=== PATIENT | male | born 1935 | race Caucasian/White ===

== ENCOUNTER 2017-04-17 17:54 | Inpatient (IN) | payer OTHER ==
[~2017-04-17] VITALS: Ht 175.2 cm; Wt 77.1 kg
--- NOTE | ~2017-04-17 | PR ---
[place], [place] PROGRESS NOTE NAME: VANDANA TOWNSEND UNIT #: [id number] ROOM: 316 DOCTOR: Manas ESTES,ELANA BIRTHDATE: [birth year] DOS: 04/22/2017 SUBJECTIVE: The patient seen and spoke with the staff. Per staff, the patient is doing well. No behavioral problems or issues. Pleasant and cooperative. The patient was pleasant and cooperative. He was in the day area. He reports doing well, denied any problems or concerns. He reports good sleep and appetite. MENTAL STATUS EXAMINATION: The patient was pleasant and cooperative. Described his mood as "okay." Affect, mood congruent. Thought process is with confabulation. He denied auditory or visual hallucination. No delusion or paranoia noted. He denied suicidal ideation, intent or plan. He also denied homicidal ideation, intent or plan. ASSESSMENT: 1. Alzheimer's dementia with behavioral disturbances. 2. Brief psychotic disorder. PLAN: 1. Continue current medication and care. 2. Continue redirection. 3. Cerrato milieu. ELANA ESTES MD CM:NAYELI Manas ESTES 04/23/17 0043 interface
--- NOTE | ~2017-04-17 | PR ---
[place], [place] PROGRESS NOTE NAME: VANDANA TOWNSEND UNIT #: [id number] ROOM: 316 DOCTOR: Manas ESTES,ELANA BIRTHDATE: [birth year] DOS: 04/21/2017 SUBJECTIVE: The patient seen and spoke with the staff. Per staff, the patient is doing well. No behavioral problems or issues. Medication compliant. easily reduced redirectable. No side effects from the medication. The patient was pleasant, cooperative. He was on his bed taking a deep nap. When I called his name, he opened his eyes and then fell back to sleep again. When I called him ____ he said that he is doing fine, but then fell back to sleep again. MENTAL STATUS EXAMINATION: The patient was pleasant, cooperative. He was sleepy. He was not in any distress, described his mood as "fine." He is in sleep, not able to do the full mental status examination. ASSESSMENT: 1. Dementia with behavioral disturbances. 2. Psychotic disorder, not otherwise specified. PLAN: 1. Continue current medication and care. 2. Continue redirection. 3. Cerrato milieu. ELANA ESTES MD CM:NAYELI [phone] Manas ESTES 04/21/171938 interface
--- NOTE | ~2017-04-17 | PR ---
[place], [place] PROGRESS NOTE NAME: [facility]END [id number] UNIT #: [id number] ROOM: 316 DOCTOR: Manas ESTES,ELANA BIRTHDATE: [birth year] DOS: 04/23/2017 PSYCHIATRIC PROGRESS NOTE SUBJECTIVE: The patient seen and spoke with the staff. Per staff, the patient is doing well. No behavioral problems or issues. Pleasantly demented. Medication compliant. No side effects from the medication. The patient was pleasant and cooperative. He reports doing well. Reports good sleep and appetite, did not express any problems or concerns. MENTAL STATUS EXAMINATION: The patient was pleasant and cooperative, described his mood as "okay." Affect, mood congruent. Thought processes with confabulation. He denied auditory or visual hallucination. No delusions or paranoia noted. He denied suicidal ideation, intent or plan. He also denied homicidal ideation, intent or plan. ASSESSMENT: 1. Dementia with behavioral disturbances. 2. Brief psychotic disorder. PLAN: 1. Continue current medication and care. 2. Continue redirection. 3. Cerrato milieu. ELANA ESTES MD CM:NAYELI 57 57 Manas ESTES 04/23/172356 interface
--- NOTE | ~2017-04-17 | WRIGHTHP ---
[place], [place] PATIENT HISTORY AND PHYSICAL EXAM NAME: VANDANA TOWNSEND [facility] #: [id number] UNIT #: [id number] ROOM: 316 DOCTOR: Manas ESTES,ELANA BIRTHDATE: [birth year] DOS: 04/19/2017 PSYCHIATRIC HISTORY AND PHYSICAL REASON FOR HOSPITALIZATION: Increased agitation, threatening behavior and mental status changes in the chcf. HISTORY OF PRESENT ILLNESS: The patient was seen, chart reviewed and I also spoke with the nursing staff. The patient is an 81-year-old male who was brought into the ER because of agitated and threatening behavior and also change of mental status. The patient is from [facility]. Reportedly, the patient was urinating and defecating in public. The patient was cleared medically into the ER and then got admitted to the psychiatric unit for further care and stabilization. The patient was noted to have urinary tract infection and he was also started on antibiotic. The patient was pleasant, cooperative, but a poor historian due to dementia. When I asked him what brought him here, he mentioned that he thought that he had something wrong with him and that is why he came here, but not able to say what does he mean by here. When I prompted him that he was not feeling good, he was not feeling good, he was not in any distress. PAST MEDICAL HISTORY: Significant for BPH, congestive heart failure, diabetes, diabetic neuropathy, fracture of the coccyx, fracture of the lumbar vertebrae, GERD, hypertension, polyosteoarthritis and polymyalgia rheumatica. PAST PSYCHIATRIC HISTORY: The patient with history of dementia. SUBSTANCE ABUSE HISTORY: No drugs or alcohol. SOCIAL HISTORY: The patient was born in [place]. He mentioned that his parents were living there, but he was raised in [facility]. He was never . He does not have any kids. 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 MENTAL STATUS EXAMINATION: The patient was pleasant and cooperative. He was alert, but not oriented to day, date, month, or year. His speech was low tone. Described his mood as "okay." Affect was somewhat flat. Thought processes with confabulation. He denied auditory or visual hallucination. No delusion or paranoia noted. He denied any suicidal ideation, intent or plan. Insight and judgment was impaired. ASSESSMENT: 1. Alzheimer dementia with behavioral disturbances. 2. Major neurocognitive disorder with behavioral disturbances. 3. Delirium secondary to urinary tract infection. PLAN: [place], [place] PATIENT HISTORY AND PHYSICAL EXAM NAME: VANDANA TOWNSEND UNIT #: [id number] ROOM: [facility] DOCTOR: Manas ESTES,ELANA BIRTHDATE: [birth year] 1. I will continue his Cymbalta 60 mg in the morning. 2. I will reduce his Depakote to Depakote 250 mg b.i.d. 3. I will continue his Namenda 10 mg twice a day. 4. Continue redirection. 5. Encourage activity and hernandez milieu. ELANA ESTES MD CM:HISPHYS:PATIENT HISTORY AND PHYSICAL EXAMINATION 20 44 Manas ESTES 04/19/17 2344 interface
--- NOTE | ~2017-04-17 | PR ---
[place], [place] PROGRESS NOTE NAME[id number] UN[facility] #: [id number] ROOM: 316 DOCTOR: Manas ESTES,ELANA BIRTHDATE: [birth year] DOS: 04/20/2017 PSYCHIATRIC PROGRESS NOTE SUBJECTIVE: The patient seen and spoke with the staff. Per staff, the patient is doing well. No behavioral problems or issues. Medication compliant. The patient was in the Aria chair in the nursing area. Reports doing okay. He seems to be a little bit sedated. Denied any problems or issues. MENTAL STATUS EXAMINATION: The patient was pleasant and cooperative, described his mood as "okay." Affect flat. Thought processes with confabulation. Denied auditory or visual hallucination. No delusion or paranoia noted. Denied any suicidal ideation, intent or plan. He also denied any homicidal ideation, intent or plan. Insight and judgment impaired. ASSESSMENT: 1. Alzheimer's dementia with behavioral disturbances. 2. Delirium secondary to urinary tract infection. PLAN: 1. Continue current medication and care. 2. Continue redirection. 3. Cerrato milieu. ELANA ESTES MD CM:NAYELI [phone] Manas ESTES 04/20/17 1533 interface
--- NOTE | ~2017-04-17 | DS ---
[place], [place] DISCHARGE SUMMARY NAME: VANDANA TOWNSEND UNIT #: [id number] ROOM: 316 DOCTOR: Manas ESTES,ELANA BIRTHDATE: [birth year] DOS: 04/23/2017 ADDENDUM Please refer to the history of present illness, past psychiatric history, past medical history, social history, substance abuse history, mental status examination, admission diagnosis from the psychiatric H and P. HOSPITAL COURSE: The patient got admitted for stabilization. He was started on medication, which he tolerated well with significant improvement of his mood and symptoms. During the next couple of days, the patient improved significantly. The treatment team felt that the patient got maximum benefit out of this acute hospitalization and can be discharged back to the half-way on 04/23/2017. MENTAL STATUS EXAMINATION AT DISCHARGE: The patient was pleasant, cooperative. He was alert, but not oriented to date, month and year. Speech was low tone. Described his mood as "okay." Affect, mood congruent. Thought processes with confabulation. He denied auditory or visual hallucination. No delusion or paranoia noted. He denied suicidal ideation, intent or plan. He also denied homicidal ideation, intent or plan. ASSESSMENT: Dementia with behavioral disturbances. PLAN: 1. Continue current medication and care. 2. Continue redirection. 3. The patient needs psychiatric followup appointment in the facility that he is going. ELANA ESTES MD CM:ADRIAN [phone] Manas ESTES 04/26/17 0612 interface
[2017-04-17] MEDS ORDERED: GOOD SENSE ASPI81 M1 PO (17:59)
[2017-04-17] MEDS ORDERED: ATIVAN0.5 MG PO ×2 (17:59→18:34)
[2017-04-17] MEDS ORDERED: CYMBALTA60 MG PO (18:00)
[2017-04-17] MEDS ORDERED: ERGOCAL2500 UNIT PO (18:02)
[2017-04-17] MEDS ORDERED: EXELON13.3 MG/21 TD (18:03)
[2017-04-17] MEDS ORDERED: Ferrex 150150 MG PO (18:04)
[2017-04-17] MEDS ORDERED: NEURONTIN300 MG PO (18:05)
[2017-04-17] MEDS ORDERED: LISINOPRIL20 MG PO (18:06)
[2017-04-17] MEDS ORDERED: NAMENDA-14 PO (18:08)
[2017-04-17] MEDS ORDERED: NAMENDA-21 PO (18:09)
[2017-04-17] MEDS ORDERED: NORVASC5 MG PO (18:10)
[2017-04-17] MEDS ORDERED: OMEPRAZOLE40 MG PO (18:10)
[2017-04-17] MEDS ORDERED: EFFER-K20 MEQ PO (18:12)
[2017-04-17] MEDS ORDERED: TOPROL XL200 MG PO (18:14)
[2017-04-17] MEDS ORDERED: METFORMIN500 MG PO (18:14)
[2017-04-17] MEDS ORDERED: PREDNISONE (18:27)
[2017-04-17] MEDS ORDERED: PREDNISONE10 MG PO (18:28)
[2017-04-17] MEDS ORDERED: HUMALOG KW200 UNIT/1 SQ (18:32)
[2017-04-17] MEDS ORDERED: ACCUNEB 0.1.25 MG/1 INH (18:33)
[2017-04-17] MEDS ORDERED: GUAIASORB DM L118 ML PO (18:35)
--- NOTE | 2017-04-18 09:10 | NUR ---
ADMISSION ORDERS RECEIVED FROM DR. DIOP, HOME MEDICATIONS REVIEWED WITH DR. DIOP, NEW ORDERS RECIEVED AND VERIFIED. WITNESSED BY 2ND RN MALICK.
--- NOTE | 2017-04-18 09:15 | NUR ---
VERBAL CONSENT FOR ADMISSION RECIEVED VIA TELEPHONE FROM PT'S POA/NIECE KEL COLE - WITNESSED BY 2ND RN MALICK, [facility] POA PAPERWORK AND LIVING WILL ON PT'S PAPER CHART, PT IS A FULL CODE. POA STATES SHE WILL CALL BACK TO GO OVER THE REST OF THE CONSENTS.
--- NOTE | 2017-04-18 09:20 | NUR ---
CALL PLACED TO [facility], SPOKE TO TETE, MADE AWARE PT IS ACCEPTED FOR ADMISSION, REQUESTED NURSE CALL WITH REPORT AND TIME OF DEPARTURE.
--- NOTE | 2017-04-18 10:10 | NUR ---
RECIEVED CALL FROM TETE AT [facility], PT HAS JUST LEFT THEIR FACILITY, NURSE TO NURSE REPORT RECIEVED, TETE STATES PT HAS HAD ALL OF HIS MORNING MEDS THIS AM.
--- NOTE | 2017-04-18 10:25 | NUR ---
RECIEVED CALL FROM IRENE COLE - MEDICATION CONSENTS REVIEWED, KEL STATES SHE IS A PHARMACIST AND UNDERSTANDS MEDICATIONS, STATES SHE FEELS PT'S BEHAVIORS HAVE DEVELOPED AFTER THE ADDITION OF THE EXELON PATCH. KEL STATES "BEFORE THAT HE WOULD GET UP OUT OF THE WHEELCHAIR, BUT HE NEVER DID THE THINGS HE IS DOING NOW. ONCE THEY STARTED THE EXELON PATCH HE HAS STARTED ACTING OUT AND I TRULY BELIEVE THAT'S THE CAUSE. I REALLY WOULD LIKE IT DISCONTINUED." THIS NURSE ASSURED IRENE HER CONCERNS WOULD BE DISCUSSED WITH DR. DIOP. VISITATION AND RULES OF THE UNIT REVIEWED WITH IRENE. IRENE STATES SHE WILL COME DOWN AND BRING PT CLOTHING AND SIGN REMAINING CONSENTS AT THAT TIME.
--- NOTE | 2017-04-18 10:30 | NUR ---
DISCUSSED EXELON ORDER WITH DR. DIOP AND CONCERNS OF THE POA. DR. DIOP STATES TO DISCONTINUE EXELON.
[2017-04-18] MEDS ORDERED: NEURONTIN300 MG PO (10:40)
--- NOTE | 2017-04-18 11:16 | NUR ---
VANDANA TOWNSEND a 81 year old M admitted via ambulance wheelchair transport from [facility], direct admission per Dr. Tuttle as a voluntary by healthcare POA admission. Arrived on unit at 1116. ALLERGIES: PCN, SULFA. Vital signs are: 97.6-88-20 150/82. 99% ROOM AIR The following forms were discussed via telephone with Julia Armenta, pt's niece and healthcare power of mobile home set up person, consents obtained, witnessed by 2nd RN Hermelinda Guerrero: Authorization For The Release of Medical Information, Clothing List, Consent to Voluntary Admission and Hospitalization, Consent and Release Forms/Receipt of Rights, Acknowledgement of Advance Directive Information, Behavioral Health Consent Form, and Informed Consent of Medications. Admitted under the services of Dr. JADON BUSHCHRISTOFER. A search was conducted and hazardous articles were removed. Client was oriented to the unit. DUTCH PIERRE
[2017-04-18 11:50] VITALS: BP 150/82
--- NOTE | 2017-04-18 11:56 | NUR ---
CALL PLACED TO [phone] FOR HOSPITALIST CELL NUMBER ONE, SPOKE TO DR. PIKE, MADE AWARE MEDICAL HISTORY AND MED REC IS COMPLETE FOR REVIEW. DR. PIKE STATES TO PLACE CONSULT UNDER DR. STEEL.
--- NOTE | 2017-04-18 12:41 | NUR ---
SPEECH PATHOLOGY Bedside swallow evaluation completed as per orders. Patient is a recent admission to [facility] and limited case history was available at current time. Patient's nurse reported a hx significant for dysphagia. Patient is dx with brief psychotic disorder. Patient is ordered a regular diet and thin liquid. Upon assessment patient was alert and cooperative, though very quiet. Respiratory skills were WNL. Lingual/labial and buccal skills were WNL. Patient presented with natural teeth though many were missing. He was assessed with regular solid, soft solid and thin liquid consistencies. Patient displayed extended mastication time, mild residue and cough with regular solid. He displayed no overt difficulty with soft food or thin liquid. Recommend patient receive a soft diet and thin liquid. Follow up therapy is not warranted at this time. Patient's nurse was educated on results/gagandeep. and verbalized understanding. Refer to report in [facility] for further info. Thank you for this referral. CLAU CURRAN MSCCC-PERSONNEL SCHEDULER
--- NOTE | 2017-04-18 14:34 | NUR ---
PHYSICAL THERAPY Patient with Doctor at this time. Serene Camacho,PT
--- NOTE | 2017-04-18 14:38 | NUR ---
SWS forwarded paperwork to Janelle medina [facility] so that YARY Temple can update the "change in condition" form.
[2017-04-18 15:20] LABS: BASO % 0.2 % (0.0-1.0); EOS # 0.2 10*3/uL (0.0-0.4); EOS % 1.4 % (1.0-4.0); HEMATOCRIT 37.2 % (42.0-52.0); HEMOGLOBIN 12.2 g/dl (14.0-18.0); LYMPH # 1.1 10*3/uL (1.3-4.4); LYMPH % 6.5 % (27.0-41.0); MEAN CELL VOLUME 90.3 fl (80.0-94.0); MEAN CORPUSCULAR HGB 29.6 pg (27.0-31.0); MEAN CORPUSCULAR HGB CONC 32.8 g/dl (33.0-37.0); MEAN PLATELET VOLUME 9.5 fl (9.6-12.3); MONO # 0.5 10*3/uL (0.1-1.0); MONO % 2.7 % (3.0-9.0); NEUT # 14.8 10*3/uL (2.3-7.9); NEUT % 88.1 % (47.0-73.0); PLATELET COUNT AUTOMATED 258 10*3/uL (130-400); RED BLOOD COUNT 4.12 10*6/uL (4.50-5.90); RED CELL DISTRI WIDTH 17.8 % (0-14.5); WHITE BLOOD COUNT 16.8 10*3/uL (4.8-10.8)
[2017-04-18 15:49] LABS: ALBUMIN 3.1 gm/dl (3.1-4.5); ALKALINE PHOSPHATASE 72 U/L (45-117); BUN 23 mg/dl (7-24); CHLORIDE 104 mmol/L (98-107); POTASSIUM 4.3 mmol/L (3.5-5.1); SGOT/AST 6 IU/L (3-35); SGPT/ALT 10 U/L (12-78); SODIUM 139 mmol/L (136-145); TOTAL PROTEIN 6.8 gm/dL (6.4-8.2)
[2017-04-18 16:19] LABS: VITAMIN D, 25-HYDROXY 57.6 ng/mL (30-100)
[2017-04-18 20:00] VITALS: BP 139/78
--- NOTE | 2017-04-19 05:52 | NUR ---
24 HR chart check completed.
--- NOTE | 2017-04-19 05:58 | NUR ---
PT ALERT TO PERSON ONLY, ABLE TO MAKE SOME NEEDS KNOWN. REQUIRES FREQUENT REDIRECTION TO REMAIN SEATED IN CHAIR, FREQUENTLY REMOVING BODY ALARM AND ATTEMPTING TO STAND AND AMBULATE WITH OUT ASSISTANCE. PT AMBULATED 15 FT WITH ASSISTANCE OF STAFF. HYGIENE CARE PROVIDED AND PT PLACED IN BED. RESPONDING TO BED ALARM SOUNDING PT FOUND TO BE SITTING ON SIDE OF BED, WHEN ASKED WHAT WAS GOING ON PT REPLIED "WHY DONT YOU TURN THE LIGHT ON AND COME LOOK AT THIS". PT WAS FOUND TO HAVE WET THREW NEW BRIEF, PJ BOTTOMS AND BED LINENS. PT COOPERATIVE WITH HYGIENE CARE AND RETURNED TO BED WITH OUT DIFFICULTY. PT SLEPT THOUGHOUT NIGHT WITH OUT INTURRUPTION, RECEPTIVE TO REPOSITIONING FOR PRESSURE RELIEF. CONTINUE POC
--- NOTE | 2017-04-19 07:47 | NUR ---
04/18/17 Afternoon Craft; Dealing with stress Patient did not attend group. Patient was asleep in his room
[2017-04-19 07:51] VITALS: BP 151/77
[2017-04-19 08:05] LABS: CHOLESTEROL 71 mg/dL (<200); HDL CHOLESTEROL 31 mg/dl (40-60); LDL CHOLESTEROL 19 mg/dL (9-159); TRIGLYCERIDES 107 mg/dl (<150); VLDL CHOLESTEROL 21 mg/dL (6-40)
--- NOTE | 2017-04-19 08:48 | NUR ---
IRENE PRICE, CALLED THIS MORNING, UPDATE GIVEN BY THIS RN. ALL QUESTIONS ANWSERED.
--- NOTE | 2017-04-19 11:02 | NUR ---
Positive Traits Patient was in attendence for group but was asleep in his chair
--- NOTE | 2017-04-19 11:04 | NUR ---
VANDANA IS PLEASANTLY CONFUSED PER USUAL. CALM AND COOPERATIVE WITH STAFF. LIMITED INTERACTIONS WITH PEERS. NAPS INTERMITTENTLY THROUGHOUT THE SHIFT. MEDICATION COMPLIANT WITHOUT DIFFICULTY. MOOD IS STABLE WITH FLAT AFFECT THIS MORNING. NO SENSORY DISTURBANCES ARE NOTED. NO AGGRESSIVE/COMBATIVE BEHAVIORS. INCONTINENT OF URINE IN BRIEF. INCONTINENCE CARE PROVIDED NEEDED. REFUSED BREAKFAST THIS MORNING. SEE [facility] FLOW SHEET FOR SPECIFIC MONITORING.
--- NOTE | 2017-04-19 11:15 | NUR ---
1300 DEPAKOTE HELD D/T INCREASED DROWSINESS THIS LATE MORNING/EARLY AFTERNOON.
[2017-04-19 11:50] LABS: BILIRUBIN NEGATIVE (NEGATIVE); BLOOD 1+ (NEGATIVE); CLARITY SL CLOUDY (CLEAR); COLOR YELLOW (YELLOW); GLUCOSE NEGATIVE (NEGATIVE); KETONE NEGATIVE (NEGATIVE); LEUKO ESTERASE 3+ (NEGATIVE); NITRITE NEGATIVE (NEGATIVE); PH 5.5 (5.0-9.0); SPECIFIC GRAVITY <= 1.005 (1.005-1.030); UROBILINOGEN 0.2 E.U./dl (0.2-1.0)
[2017-04-19 11:55] LABS: BACTERIA 2+; WBC 51-100 wbc/hpf (0-5)
[2017-04-19 11:56] LABS: EPITHELIAL CELLS 0-2
--- NOTE | 2017-04-19 13:07 | NUR ---
PHYSICAL THERAPY PAtient evaluated on 3, full evaluation to follow. continue with PT as per plan of care with fall and alarm precautions. Return to prior living arrangements with PT PRN. PAtient is moderate complexity via chart review, tests and evalaution: [id number]. Thank you for this referral. Serene Camacho,PT
--- NOTE | 2017-04-19 15:21 | NUR ---
Reminiscing Patient did not attend group, patient was asleep in his room
--- NOTE | 2017-04-19 16:39 | NUR ---
BLADDER SCAN COMPLETED WITH 104CC IN BLADDER. DEBORAH ADAN CNP MADE AWARE.
--- NOTE | 2017-04-19 18:08 | NUR ---
PATIENT IS CALM AND COOPERATIVE. HARD OF HEARING NOTED. SMILING WHEN INTERACTING WITH STAFF APPROPRIATELY. ABLE TO ANWSER SIMPLE QUESTIONS APPROPRIATELY. NAPS THROUGHOUT THE DAY. MULTIPLE UPDATES GIVEN TO MULTIPLE FAMILY MEMBERS THROUGHOUT THE DAY INCLUDING ALBERT BONILLA. SITTING IN DAY ROOM AT THIS TIME.
[2017-04-19 20:00] VITALS: BP 142/86
--- NOTE | 2017-04-19 23:51 | NUR ---
PT FREQUENTLY STANDING AND CLIMBING OUT OF BED. AMBULATED HALLS WITH STAFF ASSISTANCE OF 2 STAFF FULL LEGNTH OF HALLWAY BEFORE EXPRESSING FATIGUE. PT CONTINUING TO REMOVE BODY ALARM . PLACED IN ERICK CHAIR ACROSS FROM NURSES STATION FOR CLOSER OBSERVATION IN RECLINED POSITION.
--- NOTE | 2017-04-20 04:22 | NUR ---
24 HR chart check completed.
--- NOTE | 2017-04-20 06:32 | NUR ---
PT DIFFICULT TO ARROUSE THIS AM. SLEPT NIGHT IN ERICK CHAIR RECLINED ACROSS FROM NURSES STATION DUE TO RESTLESSNESS FREQUENTLY AWAKENING CONFUSED TO PLACE AND TIME. UNABLR TO REOIRIENT, EASILY REDIRECTED BUT SHORTLY RETURNING TO RESTLESS BEHAVIOR AND SITTING ON EDGE OF BED. PT MEDICATION COMPLIANT, OVBIOUS SHORT TERM AND MCFP MEMORY GAPS. CONTINUE 1-1 AND DISTRACTION, CONTINUE TO AMBULATE PT WITH ASSISTANCE. PT CONTINUES ON HIGH FALL PERCAUTIONS, YELLOW SOCKS AND SINAGE, BED AND BODY ALARM IN PLACE AND FUNCTIONING. Q 15 MIN CHECKS OF ALARMS DUE TO PT FREQUENTLY REMOVING BODY ALARM. 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 CONTINUE TO ENGAGE IN THERAPY, CONTINUE TO MONITOR CLOSELY DUE TO HIGH FALL RISK, CONTINUE TO REORIENT TO PLACE AND TIME. FLUIDS ENCOURAGED DUE TO UTI. BGM ACHS CHECKS DISCONTINUED DUE TO LACK OF SLIDING SCALE AND LACK OF ELEVATED GLUCOSE WITH ADMINISTRATION OF METFORMIN PO. PT STARTRED ON FLOMAX THIS EVENING AND CONTINUES TO EXHIBIT POOR URINARY STREAM AT THIS TIME. PT SLEPT 8 HOURS WITH FEW RESTLESS EPISODES. TIME.
[2017-04-20 07:42] LABS: BASO % 0.3 % (0.0-1.0); EOS # 0.3 10*3/uL (0.0-0.4); HEMATOCRIT 35.8 % (42.0-52.0); HEMOGLOBIN 11.8 g/dl (14.0-18.0); LYMPH # 2.3 10*3/uL (1.3-4.4); MEAN CELL VOLUME 89.1 fl (80.0-94.0); MEAN CORPUSCULAR HGB 29.4 pg (27.0-31.0); MEAN PLATELET VOLUME 10.1 fl (9.6-12.3); MONO # 0.5 10*3/uL (0.1-1.0); MONO % 4.4 % (3.0-9.0); NEUT # 7.6 10*3/uL (2.3-7.9); NEUT % 69.8 % (47.0-73.0); PLATELET COUNT AUTOMATED 273 10*3/uL (130-400); RED BLOOD COUNT 4.02 10*6/uL (4.50-5.90); RED CELL DISTRI WIDTH 17.5 % (0-14.5); WHITE BLOOD COUNT 10.9 10*3/uL (4.8-10.8)
[2017-04-20 08:00] VITALS: BP 134/86
[2017-04-20 08:17] LABS: ALBUMIN 3.1 gm/dl (3.1-4.5); ALKALINE PHOSPHATASE 72 U/L (45-117); BUN 21 mg/dl (7-24); CHLORIDE 102 mmol/L (98-107); CREATININE 0.82 mg/dL (0.70-1.30); POTASSIUM 3.5 mmol/L (3.5-5.1); SGOT/AST 6 IU/L (3-35); SGPT/ALT 11 U/L (12-78); SODIUM 139 mmol/L (136-145); TOTAL PROTEIN 6.8 gm/dL (6.4-8.2)
--- NOTE | 2017-04-20 11:06 | NUR ---
PATIENT IS ALERT TO PERSON WITH LONG/SHORT TERM MEMORY DEFICITS NOTED. RESPIRATIONS ARE EASY, NON-LABORED ON ROOM AIR. MOOD IS STABLE, THOUGHT PROCESS IS CONFUSED. DENIES ANY HALLUCINATIONS, DELUSIONS, HI/SI OR PAIN. PATIENT IS INTERACTIVE WITH STAFF, CALM AND COOPERATIVE, QUIET DURING ACTIVITY GROUP. 1 PERSON ASSIST WITH ACTIVITIES OF DAILY LIVING. MEAL INTAKES ARE GOOD WITH ADEQUATE FLUIDS. MEDICATION COMPLIANT WITH MEDICATION EDUCATION PROVIDED. NO RESPONSE TO INTERNAL STIMULI, Q 15 MINUTE SAFETY CHECKS MAINTAINED.
--- NOTE | 2017-04-20 11:37 | NUR ---
DR STEEL ON UNUIT TO SEE PATIENT.
[2017-04-20 20:03] VITALS: BP 145/68
--- NOTE | 2017-04-20 21:48 | NUR ---
PT ALERT AND ORIENTED TO NAME ONLY. PT DENIES SI, HI, DELUSIONAL THOUGHT PROCESSES. PT EXHIBITS NO AGGRESSION/AGITATION. NURSE ENCOURAGED VERBALIZATION OF FEELINGS. PT STATES "I HAD A GOOD DAY." NURSE REINFORCED POSITIVE SOCIALIZATION WITH PEERS AND STAFF. PT SPENT MAJORITY OF THE DAY WITH PEERS, PARTICIPATING IN GROUP SESSIONS TO THE BEST OF HIS ABILITY. CONITNUE TO MONITOR FOR CHANGES IN BEHAVIOR. CONTINUE TO FOSTER THERAPEUTIC RAPPORT.
--- NOTE | 2017-04-21 00:48 | NUR ---
24HR CHART CHECKS COMPLETE
--- NOTE | 2017-04-21 06:16 | NUR ---
PT SLEPT >5HRS, UNINTERRUPTED. REFER TO FLOWSHEET FOR ADDITIONAL INFO
[2017-04-21 08:09] VITALS: BP 140/70
--- NOTE | 2017-04-21 11:31 | NUR ---
, AND DR. BOYD ON UNIT TO ASSESS PT.
--- NOTE | 2017-04-21 13:20 | NUR ---
PT ALERT TO PERSON, PT CONFUSED TO ALL OTHER ASPECTS. PT MED COMPLIANT WITHOUT DIFFICULTY, MED EDUCATION PROVIDED. PT MOOD IS STABLE. PT PLEASANT AND COOPERATIVE, INTERACTING WITH STAFF. NO HALLUCIANTIONS OR DELUSIONS NOTED. PT DENIES ANY HOMICIDAL/SUICIDAL THOUGHTS. NO INAPPROPRAITE UNRINATING OR DEFACATING NOTED. PT INCONTINENT OF BOWEL AND BLADDER, CARE PROVIDED NEEDED. PT UP TO WHEELCHAIR, 1 ASSIST WITH TRANSFERS. PT TREATMENT PLAN TARGETS: #1- CONFUSION R/T CONGINITIVE IMPAIRMENT AEB URINATING AND DEFACATING IN INAPPROPRIATE PLACES, #2 AT RISK FOR FALLS R/T PHYSICAL LIMITATIONS AEB MUSCLE WEAKNESS AND HX OF FALLS. PT IS ON FALL PRECAUTIONS PER POLICIY. PLAN IS TO ENCOURAGE PT TO PARTICIAPTE IN GROUPS/ACTIVITIES, MONITOR PT BEHAVIORS ON Q15 MIN SFETY CHECKS, ORIENT PT TO REALITY WITH EACH INTERACTION NEEDED.
[2017-04-21 19:50] VITALS: BP 142/88
--- NOTE | 2017-04-21 22:27 | NUR ---
CLIENT WAS INTERACTIVE WITH STAFFF. PACING HALLWAY IN HIS WHEELCHAIR. MEDICATION COMPLIANT. STATES HIS DAY WAS SO/SO.. ENJOYED WATCHING THE FOOTBALL GAME. BECAME AGGITATED WHEN HE ASKED TO STAY UP LIKE HE DID LAST NIGHT TO WATCH TV. DISCUSSED IMPORTANCE OF SLEEP AND BEING ABLE TO GET UP REFRESHED FOR BREAKFAST. NO INAPPROPRIATE URNINATION OR UNDRESSING IN HALLWAYS THIS SHIFT. ENCOURAGED CLIENT TO SEEK OUT STAFF IF FEELING CONFUSED OR HAD ANY QUESTIONS.
--- NOTE | 2017-04-22 02:05 | NUR ---
24 HR chart check completed.
--- NOTE | 2017-04-22 06:42 | NUR ---
SLEPT WELL PAST 2200PM
[2017-04-22 08:58] VITALS: BP 140/74
--- NOTE | 2017-04-22 09:59 | NUR ---
Treatment Team was held withthe following: Dr. Arroyo (phone), RNs, AT, SWs. SW - S stated that Pt may need pre-cert to go back to [facility] skilled.
--- NOTE | 2017-04-22 11:34 | NUR ---
Exercise/Reminiscing/Positive Traits Patient was in attendence for group and participated when prompted. Patient did not verbally answer,only shook his head yes or no. Patient was appropriate and showed no problem behaviors through out group
--- NOTE | 2017-04-22 12:13 | NUR ---
PHYSICAL THERAPY Pavan was seen this AM 1:1 for his therapy treatment. Pt was up in the day room in his wheelchair with body alarm on. Wheeled out into the bolaños for his gait. Transfer sit/stand and to push off from his chair up and standing with MOD A X 1. Gait with wheeled walker 45' X 2, with MOD OPERATIONS VOCATIONAL INSTRUCTOR X 1, and cueing for gait, walker, turn safety and needing therapy to help with his balance cues for gait safety. End with act Ex to bilateral LE of marching, LAQ's, and ankle pumps X 20 reps with cueing for each Ex. Pt wheeled back into the day room with body alarm on. JENNIFER LITTLEJOHN DISTILLERY MANAGER.
--- NOTE | 2017-04-22 15:49 | NUR ---
Craft and postive trait group Patient attended group with appropriate behaviors. Patient limited with participation due to limited speech. Patient smiled and nodded head to agree or disagree with positive traits. Patient smiling and pleasent throughout group.
--- NOTE | 2017-04-22 19:37 | NUR ---
PLEASANTLY CONFUSED PER USUAL. MEDICATION COMPLIANT WITHOUT DIFFICULTY. MOOD IS STABLE AND PLEASANT WITH STAFF. NO SENSORY DISTURBANCES, BEHAVIORS, OR INAPPROPRIATE URINATION NOTED. NO DISROBING NOTED THIS SHIFT. HAS BEEN NOTED TO BE ISOLATIVE TO SELF. APPETITE POOR THIS SHIFT, REQUIRING STAFF TO FEED HIM FOR MEALS. WILL CONTINUE TO REORIENT FREQUENTLY T/O THE SHIFT AND PRN. WILL CONTINUE MONITOR Q15 MIN OBSERVATION CHECKS.
[2017-04-22 20:06] VITALS: BP 147/74
--- NOTE | 2017-04-22 20:15 | NUR ---
MOVING SELF AROUND IN WHEELCHAIR. ATE ENTIRE SNACK. INTERACTING WITH PEERS. NO OUTBURST, UNDRESSING OR URINATING ON FLOOR NOTED. STATES HAD A GOOD DAY AND FEELS "HAPPY"
--- NOTE | 2017-04-23 04:16 | NUR ---
YARY MADE MULTIPLE CALLS TO [facility] AND LEFT ON NURING AND ADMISSIONS PHONE AND DID NOT RECEIVE CALL BACK. YARY SPOKE TO A NURSE ON THE FLOOR AT [facility] AND NURSE SAID SHE WAS TOD PT WAS COMING BACK TODAY. YARY WILL ARRANGED TRAMSPORTATION.
--- NOTE | 2017-04-23 04:20 | NUR ---
24 HR chart check completed.
--- NOTE | 2017-04-23 05:21 | NUR ---
REC'D VOICE MAIL FROM NICOLE AT [facility] SR ADV. IP ADM HAS BEEN DENIED-MEETS NO CRITERIA. APPEAL PROCESS WILL BE FAXED. NO PEER TO PEER OFFERED.
--- NOTE | 2017-04-23 06:56 | NUR ---
SLEPT WELL PAT 2230PM
--- NOTE | 2017-04-23 08:04 | NUR ---
VM FROM [facility] CM INFORMING THAT [facility] DENIED APPROVAL FOR STAY.
[2017-04-23 08:13] VITALS: BP 153/79
--- NOTE | 2017-04-23 09:28 | NUR ---
TREATMENT TEAM WAS HELD WITH THE FOLLOWING: DR. RICARDO (PHONE), RNs, AT, SW. PT TO BE DISCHARGED TO [facility].
--- NOTE | 2017-04-23 10:28 | NUR ---
TREATMENT TEAM WAS HELD WITH THE FOLLOWIG: DR. Horner (PHONE), RNs, AT, SW. DR. HORNER - PT CAN BE DISCHARGED BACK TO FACILITY TODAY.
--- NOTE | 2017-04-23 10:30 | NUR ---
SW LEFT FOR ADMISSIONS AT [facility]. SW FAXED UPDATED INFORMATION TO FACILITY.
--- NOTE | 2017-04-23 10:30 | NUR ---
YAYR NOTIFIED [facility]EL THAT PT WAS BEING DISCHARGED TODAY. KEL WAS HAPPY TO HEAR THAT. YARY WILL CALL KEL BACK WHEN TRANSPORATION IS SCHEDULED TO LET HER KNOW WHAT TIME APPORXIMATELY THAT PT WILL REACH FACILITY.
--- NOTE | 2017-04-23 11:00 | NUR ---
DR RANGEL UP ON THE UNIT AND AWARE OF PT BEING DISCHARGED
[2017-04-23 11:04] LABS: NEURONTIN (GABAPENTIN) 2.8 ug/mL (4.0-16.0)
--- NOTE | 2017-04-23 11:37 | NUR ---
[facility] Patient sleeping during AM group. Will attempt for 1:1 and PM group.
--- NOTE | 2017-04-23 12:21 | NUR ---
YARY RECIVED CALL BACK FROM CHRISTINA LAI AT [facility]. JOELLE DID NOT RECEIVED UPDATE THAT WAS FAXED EARLIER. FAX # TO SEND TO [phone]. FAX LINE IS BUSY. YARY WILL KEEP TRYING.
[2017-04-23] MEDS ORDERED: PREDNISONE10 MG PO (12:46)
--- NOTE | 2017-04-23 13:18 | NUR ---
DEBI RECEIVED FROM [facility] BE REQUESTING H&P. YARY FAXED INFORMATION AGAIN. THIS INFORMATION WAS FAXED ON 04-18-17. BE GAVE FAX # OF [phone]. YARY HAS FAXED INFORMATIO TO 3 DIFFERENT FAX MACHINES AT [facility].
--- NOTE | 2017-04-23 13:33 | NUR ---
PHYSICAL THERAPY Pavan seen this PM 1:1 for his therapy and doing a little better then yesterday. Pt needing much verbal cueing for his transfers and gait. Transfer sit/stand with MOD A X 1, with cueing to push off from his chair. Standing balance with wheeled walker MIN A X 1. Then gait total 65' X 2, one sitting rest, with W/W and MOD MANAGER UROLOGY X 1 and cueing for gait safety and turns no LOB. End with act Ex to bilateral LE working in 15 reps each with much cueing for marching, LAQ's, ankle pumps. Pt up in his wheelchair in the day room.
--- NOTE | 2017-04-23 16:20 | NUR ---
SW ARRANGED TRANSPORATION WITH [facility] FOR RN PERIOPERATIVE 6PM.
--- NOTE | 2017-04-23 16:30 | NUR ---
YARY NOTIFIED [facility] AND [facility] THAT PT WAS BEING PICKED UP 6PM. YARY FAXED DISCHARGE ORDERS TO [facility]. PT TO BE SEEN AT [facility] X1 MONTH OR PRN.
--- NOTE | 2017-04-23 18:25 | NUR ---
PT LEFT VIA [facility], RECEIVED ALL HIS PERSONAL BELONGINGS, WHEELCHAIR, DISCHARGE INSTRUCTIONS, PT VSS, WAS COOPORATIVE
--- NOTE | 2017-04-23 18:31 | NUR ---
YARY NOTIIFED KEL [facility] OF [facility] TIME OF 6PM AND [facility] NOT CALLING BACK. KEL HAS HAD THE SAME PROBELM WITH NOT GETTING PHONE CALLS BACK.
--- NOTE | 2017-04-24 06:50 | NUR ---
PHYSICAL THERAPY CO-SIGN I approve of the Phyical Therapy notes written above. BRADY MARIE PT
== END 2017-04-23 18:15 | disposition home or self-care (01) | DRG 57 ==
LOC: 3N 17:54
PROVIDERS: Psychiatry & Neurology Psychiatry; Registered Nurse; ADMIT Psychiatry & Neurology Psychiatry
DX: G30.9 Alzheimer's disease, unspecified (principal); E11.49 Type 2 diabetes mellitus with other diabetic neurological complication; F02.81 Dementia in other diseases classified elsewhere, unspecified severity, with behavioral disturbance; F23 Brief psychotic disorder; F33.9 Major depressive disorder, recurrent, unspecified; N30.00 Acute cystitis without hematuria; I50.9 Heart failure, unspecified; R41.0 Disorientation, unspecified; I11.0 Hypertensive heart disease with heart failure; N40.0 Benign prostatic hyperplasia without lower urinary tract symptoms; K21.9 Gastro-esophageal reflux disease without esophagitis; M19.90 Unspecified osteoarthritis, unspecified site; M35.3 Polymyalgia rheumatica; D72.829 Elevated white blood cell count, unspecified; F41.9 Anxiety disorder, unspecified; Z84.89 Family history of other specified conditions; Z88.2 Allergy status to sulfonamides; Z79.4 Long term (current) use of insulin; Z88.0 Allergy status to penicillin; Z79.899 Other long term (current) drug therapy; Z79.82 Long term (current) use of aspirin